=== PATIENT | male | born 2000 | race African-American/Black ===

== ENCOUNTER 2020-07-24 04:41 | Emergency (ER) | payer OTHER ==
[2020-07-24] MEDS ORDERED: VENTOLIN HFA18 GM INH (05:04)
== END 2020-07-24 05:41 | disposition home or self-care (01) ==
LOC: FER 04:41
DX: J34.89 Other specified disorders of nose and nasal sinuses (principal); R06.02 Shortness of breath; Z77.098 Contact with and (suspected) exposure to other hazardous, chiefly nonmedicinal, chemicals
CPT/HCPCS: 99284

== ENCOUNTER 2020-09-23 14:11 | Emergency (ER) | payer OTHER ==
[~2020-09-23 14:11] MED LIST: VENTOLIN HFA18 GM INH
[2020-09-23 15:01] LABS: BILIRUBIN NEGATIVE (NEGATIVE); BLOOD NEGATIVE Ery/uL (NEGATIVE); CLARITY CLEAR (CLEAR); COLOR YELLOW (YELLOW); GLUCOSE (U) NORMAL (NORMAL); LEUKOCYTES NEGATIVE Leu/uL (NEGATIVE); NITRITE NEGATIVE (NEGATIVE); PROTEIN NEGATIVE (NEGATIVE); SPECIFIC GRAVITY 1.015 (1.001-1.030); UROBILINOGEN 0.2 mg/dL (0.2-1.0)
[2020-09-24 22:10] LABS: CHLAMYDIA TRACHOMATIS, NAA Negative (Negative); NEISSERIA GONORRHOEAE, NAA Negative (Negative)
== END 2020-09-23 15:18 | disposition home or self-care (01) ==
LOC: FER 14:11
PROVIDERS: Emergency Medicine
DX: R30.0 Dysuria (principal); Z20.2 Contact with and (suspected) exposure to infections with a predominantly sexual mode of transmission
CPT/HCPCS: 81003; 87491; 87591; 99283; J0696

== ENCOUNTER 2020-11-10 15:41 | Emergency (ER) | payer OTHER ==
[2020-11-10 17:37] LABS: BASOPHIL 0.6 % (0-2); EOSINOPHIL 4.6 % (0-5); HCT 45.8 % (42.0-52.0); LYMPHOCYTE 19.4 % (15-48); MCH 27.9 pg (25.0-31.0); MCHC 32.8 g/dL (32.0-36.0); MCV 85.1 fL (78.0-100.0); MONOCYTE 4.9 % (0-12); MPV 11.7 fL (6.0-9.5); NEUTROPHIL 70.3 % (41-80); NRBC 0; PLT 191 K/uL (150-400); RBC 5.38 M/uL (4.70-6.00); RDW 11.9 % (11.5-14.0); WBC 8.7 K/uL (4.0-10.5)
[2020-11-10 17:50] LABS: BILIRUBIN NEGATIVE (NEGATIVE); BLOOD NEGATIVE Ery/uL (NEGATIVE); CLARITY CLEAR (CLEAR); COLOR YELLOW (YELLOW); GLUCOSE (U) NORMAL (NORMAL); LEUKOCYTES NEGATIVE Leu/uL (NEGATIVE); NITRITE NEGATIVE (NEGATIVE); PROTEIN NEGATIVE (NEGATIVE); SPECIFIC GRAVITY 1.015 (1.001-1.030); UROBILINOGEN 0.2 mg/dL (0.2-1.0); pH 8.5 (5.0-9.0)
[2020-11-10 17:55] LABS: POTASSIUM 4.3 mmol/L (3.5-5.1)
[2020-11-10 17:55] LABS: AMPHETAMINES NEGATIVE (NEGATIVE); BARBITURATES NEGATIVE (NEGATIVE); ECSTASY (MDMA) NEGATIVE (NEGATIVE); MARIJUANA (THC) POSITIVE (NEGATIVE); METHADONE NEGATIVE (NEGATIVE); OPIATES NEGATIVE (NEGATIVE); OXYCODONE NEGATIVE (NEGATIVE)
== END 2020-11-10 18:46 | disposition home or self-care (01) ==
LOC: FER 15:41
PROVIDERS: Nurse Practitioner Family
DX: R07.89 Other chest pain (principal); F19.90 Other psychoactive substance use, unspecified, uncomplicated; F17.200 Nicotine dependence, unspecified, uncomplicated; Z87.09 Personal history of other diseases of the respiratory system
CPT/HCPCS: 36415; 71046; 80048; 80305; 81003; 85025; 93005

== ENCOUNTER 2020-11-17 10:48 | Emergency (ER) | payer OTHER | END 2020-11-17 12:30 | disposition home or self-care (01) | LOC: FER 10:48 | DX: S46.819A Strain of other muscles, fascia and tendons at shoulder and upper arm level, unspecified arm, initial encounter (principal); X58.XXXA Exposure to other specified factors, initial encounter | CPT/HCPCS: 99283 ==

== ENCOUNTER 2021-01-19 14:04 | Emergency (ER) | payer OTHER ==
[2021-01-19 15:11] LABS: BASOPHIL 0.6 % (0-2); EOSINOPHIL 7.9 % (0-5); HCT 47.8 % (42.0-52.0); HGB 15.5 g/dl (13.2-18.0); LYMPHOCYTE 28.1 % (15-48); MCH 27.5 pg (25.0-31.0); MCHC 32.4 g/dL (32.0-36.0); MCV 84.9 fL (78.0-100.0); MONOCYTE 6.5 % (0-12); NEUTROPHIL 56.6 % (41-80); NRBC 0; PLT 233 K/uL (150-400); RBC 5.63 M/uL (4.70-6.00); RDW 13.4 % (11.5-14.0); WBC 6.5 K/uL (4.0-10.5)
[2021-01-19 15:26] LABS: BUN/CREAT RATIO (CALC) 15.8 RATIO; CREATININE 0.95 mg/dL (0.67-1.17); POTASSIUM 4.1 mmol/L (3.5-5.1)
== END 2021-01-19 16:08 | disposition home or self-care (01) ==
LOC: FER 14:04
PROVIDERS: Nurse Practitioner Family
DX: M94.0 Chondrocostal junction syndrome [Tietze] (principal); F17.210 Nicotine dependence, cigarettes, uncomplicated
CPT/HCPCS: 36415; 71101; 80048; 85025; 85379

== ENCOUNTER 2021-12-05 22:18 | Emergency (ER) | payer OTHER ==
[2021-12-05 23:19] LABS: BASOPHIL 0.2 % (0-2); EOSINOPHIL 2.1 % (0-5); HCT 42.2 % (42.0-52.0); HGB 13.9 g/dl (13.2-18.0); LYMPHOCYTE 30.3 % (15-48); MCH 27.7 pg (25.0-31.0); MCHC 32.9 g/dL (32.0-36.0); MCV 84.2 fL (78.0-100.0); MONOCYTE 8.5 % (0-12); NEUTROPHIL 58.6 % (41-80); NRBC 0; PLT 235 K/uL (150-400); RBC 5.01 M/uL (4.70-6.00); RDW 12.7 % (11.5-14.0); WBC 8.6 K/uL (4.0-10.5)
[2021-12-05 23:30] LABS: INR 1.1 (0.9-1.2); PROTHROMBIN TIME 13.6 SECONDS (11.8-13.4); PTT 31.6 SECONDS (24.4-34.7)
[2021-12-05 23:40] LABS: BUN 16 mg/dL (7-18); BUN/CREAT RATIO (CALC) 16.7 RATIO; CHLORIDE 103 mmol/L (98-107); CO2 (BICARBONATE) 28 mmol/L (21-32); CREATININE 0.96 mg/dL (0.67-1.17); GLUCOSE 102 mg/dL (74-106); POTASSIUM 3.3 mmol/L (3.5-5.1)
[2021-12-05 23:46] LABS: ACETAMINOPHEN (TYLENOL) < 2.0 ug/mL (10.0-30.0)
[2021-12-06 00:50] LABS: BILIRUBIN NEGATIVE (NEGATIVE); BLOOD NEGATIVE Ery/uL (NEGATIVE); CLARITY CLEAR (CLEAR); COLOR YELLOW (YELLOW); GLUCOSE (U) NORMAL (NORMAL); LEUKOCYTES NEGATIVE Leu/uL (NEGATIVE); NITRITE NEGATIVE (NEGATIVE); PROTEIN NEGATIVE (NEGATIVE); SPECIFIC GRAVITY >=1.030 (1.001-1.030); UROBILINOGEN 0.2 mg/dL (0.2-1.0)
[2021-12-06 00:56] LABS: AMPHETAMINES NEGATIVE (NEGATIVE); BARBITURATES NEGATIVE (NEGATIVE); ECSTASY (MDMA) NEGATIVE (NEGATIVE); MARIJUANA (THC) POSITIVE (NEGATIVE); METHADONE NEGATIVE (NEGATIVE); OPIATES NEGATIVE (NEGATIVE); OXYCODONE NEGATIVE (NEGATIVE)
== END 2021-12-06 09:03 | disposition other institution (70) ==
LOC: FER 22:18
PROVIDERS: Nurse Practitioner Family
DX: R45.851 Suicidal ideations (principal); F11.90 Opioid use, unspecified, uncomplicated; F17.200 Nicotine dependence, unspecified, uncomplicated; Z20.822 Contact with and (suspected) exposure to COVID-19
CPT/HCPCS: 36415; 80048; 80305; 81003; 85025; 85610; 85730; 99285; G0480; U0002